=== PATIENT | male | born 1995 | race Caucasian/White ===

== ENCOUNTER 2019-10-17 11:41 | Emergency (ER) | payer OTHER ==
[2019-10-17] MEDS ORDERED: Sodium Chloride 0.9% 10 ML Syringe FLUSH PRN (11:51)
[2019-10-17] MEDS ORDERED: Lactated Ringers 1,000 ML IV ONE (11:53)
[2019-10-17] MEDS ORDERED: HYDROmorphone 1 MG/ML Syringe IVPUSH ONE ×2 (11:54→13:38)
[2019-10-17] MEDS ORDERED: Ondansetron 4 MG/2 ML SDV IVPUSH ONE (11:54)
[2019-10-17] MEDS ORDERED: Bacitracin Oint 1 GM U/D Packet TOP ONE (11:58)
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
[2019-10-17 12:28] LABS: ANION GAP 14.6 mEq/L (7-13); CHLORIDE,CL 103 mmol/L (98-107); SODIUM,NA 142 mmol/L (136-145)
[2019-10-17 12:34] LABS: PTT,PARTIAL THROMBOPLSTIN TIME 20.6 SEC (22.0-34.0)
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
[2019-10-17] MEDS ORDERED: Iopamidol 612 MG/ML 100 ML Bottle IVPUSH ONE (13:11)
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
== END 2019-10-17 14:30 | disposition home or self-care (01) ==
LOC: DL.ED 11:41
DX: S82.832A Other fracture of upper and lower end of left fibula, initial encounter for closed fracture (principal); S93.402A Sprain of unspecified ligament of left ankle, initial encounter; S40.819A Abrasion of unspecified upper arm, initial encounter; S00.81XA Abrasion of other part of head, initial encounter; S80.819A Abrasion, unspecified lower leg, initial encounter; S20.219A Contusion of unspecified front wall of thorax, initial encounter; H61.22 Impacted cerumen, left ear; V04.90XA Pedestrian on foot injured in collision with heavy transport vehicle or bus, unspecified whether traffic or nontraffic accident, initial encounter
CPT/HCPCS: 36415; 70450; 71260; 72125; 73610; 74177; 80053; 80307; 82150; 83690; 85025; 85610; 85730; 93005; 99284; Q9967